=== PATIENT | male | born 1970 | race Caucasian/White ===

== ENCOUNTER 2017-12-27 16:43 | Emergency (ER) | payer MEDICAID ==
--- NOTE | 2017-12-27 18:33 | EDPHY ---
H & P Stated Complaint: L ARM PAIN/FATIGUE /FEELS HEART RACING Time Seen by Provider: 12/27/17 18:21 HPI/ROS: CHIEF COMPLAINT: Left arm pain, intermittent heart racing HISTORY OF PRESENT ILLNESS: 47-year-old male presents with a chief complaint of left arm pain. 3-4 week history of intermittent left arm pain. The pain occurs especially when he raises his left arm above his head and radiates down to his hand. 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 He is fatigued today because he works all the time and does not sleep much. He also has intermittent heart racing, no rapid heart rate today. He denies alcohol or drugs. REVIEW OF SYSTEMS: complete 10 point ROS reviewed and is negative except for the noted elements in the HPI - Personal History Current Tetanus Diphtheria and Acellular Pertussis (TDAP): Yes - Medical/Surgical History Hx Asthma: No Hx Chronic Respiratory Disease: No Hx Diabetes: No Hx Cardiac Disease: No Hx Renal Disease: No Hx Cirrhosis: No Hx Alcoholism: No Hx HIV/AIDS: No Hx Splenectomy or Spleen Trauma: No Other PMH: SHINGLES WITH NEUROPATHY - Social History Smoking Status: Current every day smoker Alcohol Use: None Drug Use: None Additional Social History: No PCP - Physical Exam Exam: General Appearance: Drowsy, pleasant Eyes: Pupils equal and round, no conjunctival pallor or injection ENT, Mouth: Mucous membranes moist Neck: Normal inspection, no tenderness Respiratory: Lungs are clear to auscultation Cardiovascular: Regular rate and rhythm Gastrointestinal: Abdomen is soft and nontender Neurological: A&O, lens mold setter strength equal, sensory intact to light touch Skin: Warm and dry, no rash Extremities: Normal inspection Psychiatric: Mood and affect normal Constitutional: Initial Vital Signs Temperature (C) 36.6 C 12/27/17 16:49 Heart Rate 82 12/27/17 16:49 Respiratory Rate 17 12/27/17 16:49 Blood Pressure 132/99 H 12/27/17 16:49 O2 Sat (%) 98 12/27/17 16:49 O2 Delivery Mode Room Air Allergies/Adverse Reactions: Penicillins Allergy (Verified 12/27/17 16:48) Home Medications: Medication Instructions Recorded Gabapentin 12/27/17 Medical Decision Making - Diagnostics EKG Interpretation: EKG interpreted by me reveals normal sinus rhythm, rate 68, no ST or T segment changes. Interpretation: Normal EKG ED Course/Re-evaluation: This patient presents with cervical radiculopathy. No weakness or numbness and neuro imaging is not indicated. Ibuprofen instructions given. He also had presents with intermittent rapid heart rate, asymptomatic today. Stat EKG reveals no evidence of ischemia or dysrhythmia. I do not feel that further ED testing is indicated today. He was encouraged to follow up with PCP in the office. Warning signs discussed. Departure - Departure Disposition: Home, Routine, Self-Care Clinical Impression: Cervical radiculopathy Condition: Good Instructions: Cervical Radiculopathy (ED) Additional Instructions: Ibuprofen 600 mg 3 times daily while the pain persists. Referrals: Becky Baxter MD [Medical Doctor] - As per Instructions (Call to make an appointment.)
[2017-12-27] MEDS ORDERED: IBUPROFEN 600 MG TAB PO ONE (18:46)
[2017-12-27 19:09] VITALS: BP 145/90
--- NOTE | 2017-12-27 21:25 | CPEKG ---
Test Reason : OPEN Blood Pressure : / mmHG Vent. Rate : 068 BPM Atrial Rate : 067 BPM P-R Int : 135 ms QRS Dur : 091 ms QT Int : 417 ms P-R-T Axes : 055 023 029 degrees QTc Int : 444 ms Sinus rhythm Confirmed by Farhana Padilla ([id number]) on 12/27/2017 9:24:54 PM Referred By: Confirmed By:Farhana Padilla
== END 2017-12-27 19:29 | disposition home or self-care (01) ==
DX: M54.12 Radiculopathy, cervical region (principal); F17.200 Nicotine dependence, unspecified, uncomplicated

== ENCOUNTER 2018-01-28 18:19 | Emergency (ER) | payer MEDICAID ==
[2018-01-28 18:27] VITALS: BP 121/65
[2018-01-28] MEDS ORDERED: HYDROCOD/APAP 5/325 PREPACK#6 BTL TAKEHOME ONE (19:03)
--- NOTE | 2018-01-28 19:06 | EDPHY ---
H & P Time Seen by Provider: 01/28/18 18:43 HPI/ROS: HPI Needs pain medication. [age]-year-old male on foot. 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 He reports that in 2003 he fell off of a moya and sustained an injury to his right knee as well as his back. He has had problems with chronic pain to these areas since that time. He reports that he saw Dr. Fitzpatrick on January 25 and was referred to a anesthesiologist/pain management physician named Dr. Vail. He reports that Dr. Vail is currently not taking any new patients. He tried calling Dr. Fitzpatrick back several times over the last few days and has not received a call back. He is looking for other options for pain management. He currently has Medicaid. There is no history of new trauma. He reports that he has been taking multiple doses of ibuprofen for at least the last week without any significant relief of his chronic pain. ROS: Constitutional: No fever, no chills. No weakness. Eyes: No discharge. No changes in vision. ENT: No sore throat. No nasal congestion or rhinorrhea. Respiratory: No cough. No shortness of breath. Cardiac: No chest pain, no palpitations. Gastrointestinal: No abdominal pain, no vomiting, no diarrhea. Genitourinary: No hematuria. No dysuria or increased frequency with urination. Musculoskeletal: As above. No neck pain. Chronic right knee pain. No other extremity pain. Skin: No rashes. Neurological: No headache. No focal weakness or altered sensation. Past medical history: Currently lives at his job site. 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 Here by himself. Social history: As above. Denies alcohol Physical Exam: General Appearance: Alert, he is not in distress. Dirty. Hands covered with black residue from working with will in heavy machinery. This patient is responding to questions appropriately and in full sentences. This patient appears well-hydrated and well-nourished. Head: Normocephalic atraumatic. Eyes: Pupils equal and round no pallor or injection. No lid edema, erythema or injection. Neurological: Motor sensory function is grossly intact. Cranial nerves are normal. Gait is normal. Skin: Warm and dry, no rashes. No evidence of acute lacerations abrasions or contusions. Musculoskeletal: Neck is supple and nontender. Extremities are symmetrical. All joints range without pain or impingement. Psychiatric: No agitation. No depression. Database: EKG: Imaging: Procedures: Emergency department course: Triage vital signs reviewed and are normal. After discussion of ongoing management with this patient I agreed to give him a take-home pack of Vicodin. We will notify our clinical case manager regarding this patient and his need to establish a long-term care relationship with a pain management physician. We have taking his phone number. He feels comfortable with this plan and comfortable going home. Return to emergency department precautions reviewed with him. All of his questions were answered. He was discharged from the emergency department in good condition. Differential Diagnosis: The differential diagnosis on this patient includes but is not limited to chronic pain, wanting pain medication and pain management referral. Acute traumatic injury unlikely. This represents a partial list of diagnoses considered. These considerations are based on history, physical exam, past history, reassessment and diagnostic testing. Smoking Status: Current every day smoker Constitutional: Initial Vital Signs Temperature (C) 36.7 C 01/28/18 18:23 Heart Rate 78 01/28/18 18:23 Respiratory Rate 16 01/28/18 18:23 Blood Pressure 121/65 H 01/28/18 18:23 O2 Sat (%) 97 01/28/18 18:23 O2 Delivery Mode Room Air Allergies/Adverse Reactions: ibuprofen Allergy (Verified 01/28/18 18:22) Penicillins Allergy (Verified 12/27/17 16:48) Departure - Departure Disposition: Home, Routine, Self-Care Clinical Impression: Chronic pain Condition: Good Instructions: Chronic Pain (ED) Additional Instructions: Read and follow provided instructions. We will have our clinical case managerassessment services manager you tomorrow morning as discussed to discuss options regarding ongoing treatment of your chronic pain. Take medication as prescribed. 1-2 pills every 4-6 hours as needed for pain. Return to the emergency department for change in her pain, worsening pain, loss of sensation or weakness in your extremities, bowel or bladder incontinence or other serious concerns. Referrals: David Fitzpatrick MD [Primary Care Provider] - As per Instructions
--- NOTE | 2018-01-29 17:02 | ASMTCMCOM ---
CM Note CM Note Notes: Received a CM Consult request to followup with pt re: chronic pain mgmt referral and PCP coordination. Pt's PCP is Dr Fitzpatrick at [facility] ([phone]). Per chart review, pt had initially been referred by Dr Fitzpatrick to Dr Clarisa phan/[facility] ([phone]) but she is not accepting new patients at this time. Pt states he called Dr Fitzpatrick's office this last Monday requesting they fax over another referral to a different pain clinic but he never heard back from the office. This CM called Dr Fitzpatrick's office and spoke w/receptionist telephone operator who said they are working on sending the referral and will talk to Dr Fitzpatrick's Radio Artist HIEN about sending the referral and following up with the pt. This CM spoke w/pt and relayed info about Dr Fitzpatrick's office sending the referral and that they will be reaching out to him as soon as they complete it. CM available for further assistance if available. Date Signed: 01/29/2018 05:01 PM Electronically Signed By:Mayelin Roberts RN
== END 2018-01-28 19:20 | disposition home or self-care (01) ==
DX: G89.29 Other chronic pain (principal)

== ENCOUNTER 2018-02-02 19:06 | Emergency (ER) | payer MEDICAID ==
[2018-02-02 19:15] VITALS: BP 133/85
== END 2018-02-02 20:08 | disposition left against medical advice (07) ==
DX: Z53.21 Procedure and treatment not carried out due to patient leaving prior to being seen by health care provider (principal)

== ENCOUNTER 2018-02-03 06:38 | Emergency (ER) | payer MEDICAID ==
[2018-02-03 06:43] VITALS: BP 129/98
--- NOTE | 2018-02-03 07:31 | EDPHY ---
H & P Stated Complaint: chronic back and R knee pain Time Seen by Provider: 02/03/18 07:15 HPI/ROS: CHIEF COMPLAINT: Right knee pain HISTORY OF PRESENT ILLNESS: 47-year-old male presents with chronic right knee pain. History of severe arthritis in the right knee, demonstrated by prior MRI. Previously told he needs a knee replacement. He has ongoing pain in the right knee. Take ibuprofen and Tylenol for pain. However the pain remains severe. He was referred to a pain medicine specialist and has an appointment next month. 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 ROS: No numbness, weakness, excessive bleeding, syncopal episode, other injury. - Personal History Current Tetanus/Diphtheria Vaccine: Yes - Medical/Surgical History Hx Asthma: No Hx Chronic Respiratory Disease: No Hx Diabetes: No Hx Cardiac Disease: No Hx Renal Disease: No Hx Cirrhosis: No Hx Alcoholism: No Hx HIV/AIDS: No Hx Splenectomy or Spleen Trauma: No Other PMH: back trauma 2007 85 ft fall. ortho - Social History Smoking Status: Current every day smoker Alcohol Use: Sober Drug Use: None - Physical Exam Exam: Alert and oriented, pleasant Extremities: Right knee-large callus on the anterior aspect of the knee, no joint swelling, tenderness over the medial and lateral joint lines, with laxity with varus and valgus stress Skin: Intact Neuro: Motor and sensory intact Vascular: Capillary refill brisk distally Constitutional: Initial Vital Signs Temperature (C) 36.4 C 02/03/18 06:40 Heart Rate 67 02/03/18 06:40 Respiratory Rate 18 02/03/18 06:40 Blood Pressure 129/98 H 02/03/18 06:40 O2 Sat (%) 98 02/03/18 06:40 O2 Delivery Mode Room Air Allergies/Adverse Reactions: ibuprofen Allergy (Verified 02/03/18 06:41) Penicillins Allergy (Verified 02/03/18 06:41) Home Medications: Medication Instructions Recorded Hydrocodone/APAP 5/325 [[place] 1 - 2 tab PO Q4H PRN #10 tab 02/03/18 5/325] Medical Decision Making ED Course/Re-evaluation: This patient presents with chronic right knee pain, exacerbated by 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 I reviewed his past medical record and he received a prepack of hydrocodone on his last visit. He has followed the instructions from the last visit and from instructions given by Dr. Fitzpatrick, his PCP. I will give him a small amount of hydrocodone #10. Departure - Departure Disposition: Home, Routine, Self-Care Clinical Impression: Right knee pain Qualifiers: Chronicity: chronic Qualified Code(s): M25.561 - Pain in right knee Condition: Good Instructions: Knee Pain (ED) Additional Instructions: Keep your appointment with the pain medicine specialist next month. Ibuprofen 600 mg 3 times daily while the pain persists. Referrals: David Fitzpatrick MD [Primary Care Provider] - 5-7 days, if not improved Prescriptions: Hydrocodone/APAP 5/325 [[place] 5/325] 1 - 2 tab PO Q4H PRN #10 tab PRN Reason: Pain, Moderate
== END 2018-02-03 07:55 | disposition home or self-care (01) ==
DX: M25.561 Pain in right knee (principal)

== ENCOUNTER 2018-02-12 14:16 | Emergency (ER) | payer MEDICAID ==
[2018-02-12 14:26] VITALS: BP 141/99
--- NOTE | 2018-02-12 14:59 | EDPHY ---
H & P Time Seen by Provider: 02/12/18 14:50 HPI/ROS: CHIEF COMPLAINT: Acute on chronic knee pain HISTORY OF PRESENT ILLNESS: 47-year-old male history of chronic knee pain, history of severe arthritis demonstrated on prior MRI with scheduled use total knee basement 02/27/2018 by surgeon whose name he forgets. History of opiate dependence. Ran out of his opiates complaining of pain. Denies acute trauma. Denies discoloration. Denies fever chills. Denies flu-like symptoms. PHYSICAL EXAM (Prior to examination, patient consented to physical exam, hands were washed and my usual and customary physical exam procedures followed) 1) GENERAL: Well-developed, well-nourished, alert and oriented. Appears to be in no acute distress. 2) HEAD: Normocephalic 3) HEENT: Pupils equal, round, reactive to light bilaterally. 4) LUNGS: Breathing comfortably. 5) MUSCULOSKELETAL: Exam of the right knee shows normal coloration. Normal temperature. No effusion. No pain with axial loading. No instability. Tender to palpation medial aspect of knee. . Compartments are soft. 6) SKIN: No overlying skin changes. 7) VASCULAR: DP,PT pulses and cap refill present and brisk distally DIFFERENTIAL DIAGNOSIS: in no particular order including but not limited to fracture, sprain, compartment syndrome, septic arthritis, DVT Smoking Status: Current every day smoker Constitutional: Initial Vital Signs Temperature (C) 36.5 C 02/12/18 14:22 Heart Rate 80 02/12/18 14:22 Respiratory Rate 18 02/12/18 14:22 Blood Pressure 141/99 H 02/12/18 14:22 O2 Sat (%) 98 02/12/18 14:22 O2 Delivery Mode Room Air Allergies/Adverse Reactions: ibuprofen Allergy (Verified 02/12/18 14:22) Penicillins Allergy (Verified 02/12/18 14:22) Home Medications: Medication Instructions Recorded Hydrocodone/APAP 5/325 [[place] 1 - 2 tab PO Q4H PRN #10 tab 02/03/18 5/325] Lidocaine [Lidoderm] 1 each TP BID #30 adh..patch 02/12/18 MDM/Departure - MDM ED Course/Re-evaluation: This patient has history of chronic right knee pain. He has previously been given opiates in the ER. Discussed hospital narcotic prescribing guidelines. Further prescriptions for narcotics will not be given this patient. I have offered lidocaine patch which she accepts. He is scheduled for total knee replacement February 2018. Recommend he keep this scheduled surgery. Doubt septic arthritis. Doubt cellulitis. Given my usual and customary orthopedic precautions and instructions. Care of patient under supervision of secondary supervising physician Dr Lucero Richardson. - Depart Disposition: Home, Routine, Self-Care Clinical Impression: Chronic pain of right knee Condition: Good Instructions: Knee Pain (ED) Additional Instructions: Return to the ER immediately if you experience discoloration, have worsening pain, numbness, tingling, or any other symptoms that concern you. If you received x-rays in the emergency department today, be advised, that ligamentous , tendon, muscular, and other non-bony injury cannot be fully ruled out. Try to keep your affected extremity elevated above the level of your chest, and keep cold packs on the affected area, for the next 48 hours. Keep your scheduled knee replacement surgery 02/27/2018 Prescriptions: Lidocaine [Lidoderm] 1 each TP BID #30 adh..patch Referrals: Usama Baker MD [Medical Doctor] - 2-3 days, call for appt.
== END 2018-02-12 15:05 | disposition home or self-care (01) ==
DX: M25.561 Pain in right knee (principal)

== ENCOUNTER 2018-02-20 07:28 | Emergency (ER) | payer MEDICAID ==
[2018-02-20 07:34] VITALS: BP 106/89
[2018-02-20] MEDS ORDERED: ACETAMINOPHEN 500 MG TAB PO ONE (08:06)
--- NOTE | 2018-02-20 08:09 | EDPHY ---
HPI/HX/ROS/PE/MDM Narrative: CHIEF COMPLAINT: Back pain HPI: The patient is a 47-year-old male with multiple visits to this emergency department for back pain over the last month. He states that last night around 3:00 a.m. He fell and struck his back on the open tailgate of a truck. He denies other injury. He requests pain medicine. REVIEW OF SYSTEMS: Aside from elements discussed in the HPI, a comprehensive 10-point review of systems was reviewed and is negative. PMH: Chronic back pain SOCIAL HISTORY: Denies drug abuse. PHYSICAL EXAM: General:Patient is alert, in no acute distress. Back: Normal to inspection. No tenderness to palpation. Absolutely no signs of trauma. Skin: Normal color. No rash. Warm and dry. Extremities: Normal appearance. Full range of motion. Very dirty hands. Neuro: Oriented x3. Normal motor function. Normal sensory function. MDM: This patient returns to emergency department with complaint of back pain after numerous visits and after having being flags for narcotic caution. I reviewed the [facility] database which indicates that the patient was at [facility] 2 days ago, also complaining of back pain and received prescription for muscle relaxants. I discussed this with the patient and explained to him that I would not be providing any narcotics, nor do I think any imaging is currently indicated. The patient then walked out of the exam room without official discharge. I have extremely strong suspicion that this represents drug-seeking behavior. General Time Seen by Provider: 02/20/18 08:00 Initial Vital Signs: Initial Vital Signs Temperature (C) 36.7 C 02/20/18 07:32 Respiratory Rate 20 02/20/18 07:32 Blood Pressure 106/89 H 02/20/18 07:32 O2 Sat (%) 92 02/20/18 07:32 O2 Delivery Mode Room Air Allergies/Adverse Reactions: ibuprofen Allergy (Verified 02/12/18 14:22) Penicillins Allergy (Verified 02/12/18 14:22) Home Medications: Medication Instructions Recorded Hydrocodone/APAP 5/325 [[place] 1 - 2 tab PO Q4H PRN #10 tab 02/03/18 5/325] Lidocaine [Lidoderm] 1 each TP BID #30 adh..patch 02/12/18 Departure - Departure Disposition: Home, Routine, Self-Care Clinical Impression: Back pain Condition: Good Instructions: Back Pain (ED) Referrals: NONE *PRIMARY CARE P,. [Primary Care Provider] - As per Instructions
== END 2018-02-20 08:13 | disposition home or self-care (01) ==
DX: M54.5 Low back pain (principal); Z88.0 Allergy status to penicillin

== ENCOUNTER 2018-03-01 16:27 | Emergency (ER) | payer MEDICAID ==
[2018-03-01 16:41] VITALS: BP 143/99
--- NOTE | 2018-03-01 16:52 | EDPHY ---
H & P Stated Complaint: chronic r knee pain for years has had work ups/states needs pain meds Time Seen by Provider: 03/01/18 16:50 HPI/ROS: HPI: This is a 47-year-old male who presents with Chief Complaint: chronic r knee pain for years has had work ups/states needs pain medications Location: Right knee Quality: Pain Duration: For years Signs and Symptoms: No bleeding, no radiation, no numbness, no weakness, no tingling, no incontinence, + decreased range of motion, + swelling, + pain, no fever Timing: Acute on chronic Severity: 11/29 Context: Patient presents for the 3rd time in a month with complaints of pain. He is followed by the [facility] and received gabapentin and tramadol. Patient reports that he has right acute on chronic knee pain in the anterior medial portion that is nonradiating in nature but constant, severe and worsened with any activity. 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 Patient schedule this Monday for an MRI and a pain management appointment on Monday. Denies radiation, weakness, paresthesias. Modifying Factors: See above Comment: ROS: A comprehensive 10 system review of systems is otherwise negative aside from elements mentioned in the history of present illness. MEDICAL/SURGICAL/SOCIAL HISTORY: Medical history: back trauma 2008, 85 ft fall/knee pain Surgical history: Denies Social history: Employed. Current every day smoker. CONSTITUTIONAL: Polite and cooperative, smells heavily of tobacco, middle-aged white male who appears older than stated age, awake and alert, no obvious distress HEENT: Atraumatic and normocephalic. NECK: supple EXTREMITIES: 2/2 pulses, strength 5/5, right KNEE: Mild effusion, moderate medial joint line tenderness. No lateral joint line tenderness, full extension to 180, flexion to 120. No pain with varus and valgus exam. No pain with anterior drawer or posterior drawer test. Extensor mechanism intact. DIP/PIP/ MCP flexion/extension intact with good light touch sensation. no deformities, no clubbing, no cyanosis or edema. NEUROLOGICAL: no focal neuro deficits. GCS 15. Light touch sensation intact. SKIN: Warm and dry, no erythema. no rash. Good capillary refill. Source: Patient Exam Limitations: No limitations - Personal History Current Tetanus Diphtheria and Acellular Pertussis (TDAP): Yes - Medical/Surgical History Hx Asthma: No Hx Chronic Respiratory Disease: No Hx Diabetes: No Hx Cardiac Disease: No Hx Renal Disease: No Hx Cirrhosis: No Hx Alcoholism: No Hx HIV/AIDS: No Hx Splenectomy or Spleen Trauma: No Other PMH: back trauma 2007 85 ft fall/ knee pain - Social History Smoking Status: Current every day smoker Constitutional: Initial Vital Signs Temperature (C) 36.6 C 03/01/18 16:38 Heart Rate 75 03/01/18 16:38 Respiratory Rate 18 03/01/18 16:38 Blood Pressure 143/99 H 03/01/18 16:38 O2 Sat (%) 98 03/01/18 16:38 O2 Delivery Mode Room Air Allergies/Adverse Reactions: ibuprofen Allergy (Verified 03/01/18 16:37) Penicillins Allergy (Verified 03/01/18 16:37) Home Medications: Medication Instructions Recorded NK [No Known Home Meds] 03/01/18 Medical Decision Making Procedures: Procedure: Splint placement. Crutches were applied and instructions provided by tech. After application of the splint I returned and re-examined the patient. The splint was adequately immobilizing the joint and distal to the splint the patient's circulation and sensation was intact. ED Course/Re-evaluation: Vital signs reviewed and stable upon arrival. Patient has already had a right knee x-ray and has an MRI scheduled in 2 days outpatient. He also has an appointment with pain management Monday. He advised after further questioning that he has not only gabapentin but tramadol 100 mg given by his primary care provider at [facility]. I advised to the patient that the ER will not manage chronic knee pain with opiates. I offered him crutches and he politely accepted. No signs of neurovascular compromise/tenting of skin/compartment syndrome/ extremities and joints examined above and below area of concern and are neurovascularly intact/gouty arthropathy/cellulitis. This patient was seen under the supervision of my secondary supervising physician. I evaluated care for this patient independently. Discussed this patient with Dr. Rodriguez who did not see the patient. Differential Diagnosis: Knee injury while [] including but not limited to fracture, ACL injury, contusion, muscular strain, and meniscus injury. Departure - Departure Disposition: Home, Routine, Self-Care Clinical Impression: Chronic pain of right knee Condition: Good Instructions: Knee Pain (ED) Additional Instructions: Use crutches to aid ambulation and stay off the right lower extremity. Start with toe-touch weight-bearing status. Take Tylenol 650 mg every 4 hours and/or Ibuprofen 600 mg every 8 hours with food as needed for pain. Use tramadol 100 mg every 6 hours as needed for severe/break through pain. Continue to use gabapentin as prescribed. Apply ice for 30 minutes at a time; 2-3 times per day for the next 1-2 days. Keep MRI appointment this Monday and Follow up with pain management on Monday. Referrals: [facility],. [Clinic] - As per Instructions
== END 2018-03-01 17:17 | disposition home or self-care (01) ==
DX: M25.561 Pain in right knee (principal)

== ENCOUNTER 2018-03-25 11:56 | Emergency (ER) | payer MEDICAID ==
--- NOTE | 2018-03-25 12:23 | EDPHY ---
H & P Time Seen by Provider: 03/25/18 12:10 HPI/ROS: CHIEF COMPLAINT: Chronic right knee pain HISTORY OF PRESENT ILLNESS: 47-year-old homeless male history of chronic right knee pain complaining of acute exacerbation chronic knee pain. Today is Monday. On Monday, he has a scheduled right knee arthroplasty by Dr. Edvin Duran [facility] in [place], surgery scheduled at [facility]. PHYSICAL EXAM (Prior to examination, patient consented to physical exam, hands were washed and my usual and customary physical exam procedures followed) 1) GENERAL: Well-developed, well-nourished, alert and oriented. Appears to be in no acute distress. 2) HEAD: Normocephalic 3) HEENT: Pupils equal, round, reactive to light bilaterally. 4) LUNGS: Breathing comfortably. 5) MUSCULOSKELETAL: Exam of the right knee shows normal coloration. Pain with range of motion.. Compartments are soft. 6) SKIN: Intact normal appearance. No skin changes. 7) VASCULAR: DP,PT pulses and cap refill present and brisk distally DIFFERENTIAL DIAGNOSIS: in no particular order including but not limited to fracture, sprain, compartment syndrome, septic arthritis, DVT Smoking Status: Current every day smoker Constitutional: Initial Vital Signs Temperature (C) 36.5 C 03/25/18 11:59 Heart Rate 82 03/25/18 11:59 Respiratory Rate 16 03/25/18 11:59 Blood Pressure 125/94 H 03/25/18 11:59 O2 Sat (%) 91 L 03/25/18 11:59 O2 Delivery Mode Room Air Allergies/Adverse Reactions: ibuprofen Allergy (Verified 03/25/18 11:59) Penicillins Allergy (Verified 03/25/18 11:59) Home Medications: Medication Instructions Recorded Hydrocodone/APAP 5/325 [[place] 1 tab PO Q6 PRN #7 tab 03/25/18 5/325 (RX)] MDM/Departure - MDM ED Course/Re-evaluation: Today is Monday. The patient has a scheduled total knee repair replacement on Monday. I recommend he keep this scheduled surgery appointment. I have agreed to provide him 7 tablets prescription. Doubt compartment syndrome, DVT, septic arthritis. Care of patient under supervision of primary supervising physician Dr Macias . - Depart Disposition: Home, Routine, Self-Care Condition: Good Instructions: Knee Pain (ED) Additional Instructions: Please keep your scheduled surgery for this Monday Prescriptions: Hydrocodone/APAP 5/325 [[place] 5/325 (RX)] 1 tab PO Q6 PRN #7 tab PRN Reason: Pain, Severe Referrals: Keep, your surgery scheduled for this Monday [Other] - As per Instructions Otilio Robbins MD [Medical Doctor] - 2-3 days, call for appt.
[2018-03-25 12:30] VITALS: BP 143/99
== END 2018-03-25 12:31 | disposition home or self-care (01) ==
DX: M25.561 Pain in right knee (principal); G89.29 Other chronic pain; Z59.0 Homelessness; Z88.0 Allergy status to penicillin

== ENCOUNTER 2018-04-09 13:58 | Emergency (ER) | payer MEDICAID ==
[2018-04-09 14:08] VITALS: BP 116/84
--- NOTE | 2018-04-09 14:30 | EDPHY ---
H & P Time Seen by Provider: 04/09/18 14:16 HPI/ROS: CHIEF COMPLAINT: Right knee pain HISTORY OF PRESENT ILLNESS: 47-year-old male postop day 6 post right knee arthroscopic surgery by Dr.Garrett Duran , [facility], [facility], complaining of right calf pain and popliteal pain, ran out of his Percocet. Denies acute trauma. Denies discoloration. PHYSICAL EXAM (Prior to examination, patient consented to physical exam, hands were washed and my usual and customary physical exam procedures followed) 1) GENERAL: Well-developed, well-nourished, alert and oriented. Appears to be in no acute distress. 2) HEAD: Normocephalic 3) HEENT: Pupils equal, round, reactive to light bilaterally. 4) LUNGS: Breathing comfortably. 5) MUSCULOSKELETAL: Exam of the right knee shows surgical incisions with no signs of dehiscence or infection. Normal color normal temperature. Tender to palpation anterior medial aspect. No crepitus. No gross instability. Proximally and distally nontender. Negative Homans no palpable cord . Compartments are soft. 6) SKIN: Intact. No signs of cellulitis 7) VASCULAR: DP,PT pulses and cap refill present and brisk distally DIFFERENTIAL DIAGNOSIS: in no particular order including but not limited to fracture, sprain, compartment syndrome, septic arthritis, DVT Smoking Status: Current every day smoker Constitutional: Initial Vital Signs Temperature (C) 36.5 C 04/09/18 14:06 Heart Rate 98 04/09/18 14:06 Respiratory Rate 20 04/09/18 14:06 Blood Pressure 116/84 H 04/09/18 14:06 O2 Sat (%) 95 04/09/18 14:06 O2 Delivery Mode Room Air Allergies/Adverse Reactions: ibuprofen Allergy (Verified 04/09/18 14:05) Penicillins Allergy (Verified 04/09/18 14:05) Home Medications: Medication Instructions Recorded Percocet 5-325 mg Tablet 04/09/18 MDM/Departure - [facility] ED Course/Re-evaluation: 2:26 p.m.: I had ordered ultrasound the patient's right lower extremity as he is postop day 6 post right knee arthroscopic surgery. This was was ordered however the patient then declined at upon my telling him that he would not be able to receive any further prescriptions for opiates. Of particular concern in this patient, he was seen by myself on given 7 tablets of hydrocodone 5 mg and states that the only other prescription he received was on the 02 of April consisting of 20 tablets of 06/25/2024 oxycodone. In performing a prescription drug monitoring search on this patient, on March 27 he filled a prescription for hydrocodone 10 mg tablets #28,, and on April 05 similar prescription for #60 tablets. Informed the patient that I am concerned about his usage of opiates as well acetaminophen. We discussed possible acetaminophen and hepatic toxicity. He walked out of the ER. He did not receive aftercare instructions. Care of patient under supervision of secondary supervising physician Dr Maldonado . - Depart Disposition: Home, Routine, Self-Care Clinical Impression: Right knee pain Qualifiers: Chronicity: acute Qualified Code(s): M25.561 - Pain in right knee Condition: Good Instructions: Knee Pain (ED) Stand Alone Forms: Narcotic Guidelines Referrals: Follow-up, with Dr. Duran in the next 1-2 days [Other] - As per Instructions
--- NOTE | 2018-04-09 14:43 | ASMTCMCOM ---
CM Note CM Note Notes: Assistance at request of ED PETER Stahl. Pt was seen in [facility] for knee pain prior to knee surgery When asked pt was not forthcoming with number of narcotic prescriptions in the last 3 weeks (03/25,03/27,04/02,04/05) for a total of 176 pills. When he was informed that he would not be provided with an additional prescription or given pain meds he opted to leave stating he would be going to his regular doctor. Narcotic caution updated. CM to continue follow as needed. Date Signed: 04/09/2018 02:43 PM Electronically Signed By:Kenia Ruth LCSW
--- NOTE | 2018-04-09 14:46 | ASMTLACE ---
LACE Length of stay for Answers: Less than 1 day current admission Acuity / Level of Answers: No Care: Did the patient have an inpatient admission? Comorbidities - select Answers: Opioid dependence all that apply / Chronic pain # of Emergency department Answers: 9-12 visits in the last 6 months Social determinants Answers: History of substance abuse (ETOH, street drugs, prescription drugs, etc.) Homelessness (street, [facility]) Lack of community resources and/or lack of social support (no pcp, lives alone, transportation, raad d) Score: 19 Date Signed: 04/09/2018 02:45 PM Electronically Signed By:Kenia Rtuh LCSW
== END 2018-04-09 14:32 | disposition home or self-care (01) ==
DX: M25.561 Pain in right knee (principal)

== ENCOUNTER 2018-05-30 23:05 | Emergency (ER) | payer MEDICAID ==
[2018-05-30 23:13] VITALS: BP 129/87
--- NOTE | 2018-05-31 00:26 | EDPHY ---
H & P Stated Complaint: R knee pain post surgery 6 weeks ago Time Seen by Provider: 05/30/18 23:50 HPI/ROS: HPI The patient presents with right knee pain which has been present chronically though is worse over the last 6 weeks since he had right knee arthroscopic procedure performed at [facility] in [place]. The patient states that his pain is ongoing and worse. It is throughout his knee and in his popliteal fossa. It is achy in nature and worse with walking. He reports that he has been to our ER once since his operation though otherwise has not seen any medical providers. He says he is taking Tylenol, up to 20 pills a day. 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 He has not gone to physical therapy, has not tried ice, rest, elevation. REVIEW OF SYSTEMS 10 systems were reviewed and negative with the exception of the elements mentioned in the history of present illness. 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 PHYSICAL General Appearance: Alert, disheveled Eyes: Pupils equal and round no pallor or injection ENT, Mouth: Mucous membranes moist Respiratory: There are no retractions, lungs are clear to auscultation Cardiovascular: Regular rate and rhythm Gastrointestinal: Abdomen is soft and non-tender, no masses, bowel sounds normal Neurological: A&O, moves all extremities Skin: Warm and dry, no rashes Musculoskeletal: Right knee without any effusion, there is no erythema, there is no patellar apprehension, there is no laxity of the joint, there is limited flexion of the knee to about 45, this is limited by pain, there is no leg edema Extremities: symmetrical, full range of motion Psychiatric: Patient is oriented X 3, there is no agitation Source: Patient Exam Limitations: No limitations - Personal History Current Tetanus/Diphtheria Vaccine: Yes Current Tetanus Diphtheria and Acellular Pertussis (TDAP): Yes - Medical/Surgical History Hx Asthma: No Hx Chronic Respiratory Disease: No Hx Diabetes: No Hx Cardiac Disease: No Hx Renal Disease: No Hx Cirrhosis: No Hx Alcoholism: No Hx HIV/AIDS: No Hx Splenectomy or Spleen Trauma: No Other PMH: back trauma 2007 85 ft fall/ knee pain, RIGHT KNEE SURG 04/09 - Social History Smoking Status: Current every day smoker Constitutional: Initial Vital Signs Temperature (C) 36.8 C 05/30/18 23:10 Heart Rate 73 05/30/18 23:10 Respiratory Rate 16 05/30/18 23:10 Blood Pressure 129/87 H 05/30/18 23:10 O2 Sat (%) 97 05/30/18 23:10 O2 Delivery Mode Room Air Allergies/Adverse Reactions: ibuprofen Allergy (Verified 05/30/18 23:09) Penicillins Allergy (Verified 05/30/18 23:09) Home Medications: Medication Instructions Recorded NK [No Known Home Meds] 05/30/18 Medical Decision Making Procedures: Bedside right leg Ultrasound- performed and interpreted by me. Indication: Right knee pain after operation Findings: Popliteal vein is compressible in the popliteal fossa, common femoral vein is compressible Impression: 2 point test negative for any DVT Differential Diagnosis: 47-year-old male with chronic knee pain who had arthroscopic procedure for performed about 6 weeks ago at outside institution with worsening knee pain, now presents complaining that he cannot bear the pain. He states he is using Tylenol as treatment. I reviewed his information in the [facility]. The patient has multiple prescriptions for opiate medications, most recently for hydrocodone/ acetaminophen 10/325, total of 60 pills, filled on May 21. The patient states that he has run out of these medications. I explained to him that he could be expect experiencing withdrawal. He states that this is impossible and he has never had withdrawal before. He has not been truthful with me and eventually admits that he has been seen at several places for his postoperative pain and has been following with his orthopedist. Explained that we cannot prescribe him any medication from the emergency department. He will need to follow up with his treating physician. I performed a bedside DVT ultrasound which was negative. I see no signs of infection. Departure - Departure Disposition: Home, Routine, Self-Care Clinical Impression: Left knee pain Qualifiers: Chronicity: chronic Qualified Code(s): M25.562 - Pain in left knee Condition: Good Instructions: Pain Management (ED), Chronic Pain (ED) Additional Instructions: Follow-up with the doctor that did your knee surgery. We cannot give you any opiate medications from the emergency department. Referrals: [facility],. [Clinic] - As per Instructions
== END 2018-05-31 00:27 | disposition home or self-care (01) ==
DX: M25.562 Pain in left knee (principal); M54.9 Dorsalgia, unspecified; G89.29 Other chronic pain; Z59.0 Homelessness